=== PATIENT | female | born 2000 | race Caucasian/White ===

== ENCOUNTER 2024-10-03 14:28 | Inpatient (IN) ==
[2024-10-03] MEDS ORDERED: LIDOCAINE 1% LOCAL 20 ML VIAL INFIL PRN (14:44)
[2024-10-03] MEDS ORDERED: OXYTOCIN 30 UNITS/NSS 30 UNITS/500 ML BAG IV PRN (14:44)
[2024-10-03 15:10] LABS: Hematocrit (blood only) 34.6 % (37.0-47.0); Mean Corpuscular Hemoglobin 28.8 pg (25.0-34.0); Mean Corpuscular Hgb Conc 34.7 g/dL (32.0-36.0); Mean Corpuscular Volume 83.2 fL (80.0-100.0); Mean Platelet Volume 10.7 fL (9.4-12.4); Platelet Count 261 K/uL (130-400); RDW Coefficient of Variation 12.6 % (11.5-14.5); RDW Standard Deviation 37.8 fL (36.4-46.3); Red Blood Count 4.16 M/uL (4.20-5.40); White Blood Count 16.23 K/ul (4.8-10.8)
[2024-10-03] MEDS: LACTATED RINGER'S 1,000 ML IV PRN (15:20)
--- NOTE | 2024-10-03 16:22 | History & Physical Report ---
Date of Service October 03, 2024 Assessment & Plan (1) Supervision of normal first : Plan: 24 yo G1 at 40 5/7 wga presents in labor VSS Fetus at 1 Labor - offered arom as does not plan epidural, pt agreeable. May need otstart pit as ctx have spaced but will see GBS neg Admission and Anticipated Discharge Date Admission Date: October 03, 2024 History of Present Illness Chief Complaint: ctx Primary Care Provider: Garth Reyes 24 yo G1 at 40 5/7 wga presents in labor. Was seen in office and 6-7cm, checked by admitting provider on L&D and 10cm w/ bulging bag. Declines epidural PNI: vaping hx pyloric stenosis repair Allergies Allergy/AdvReac Type Severity Reaction Status Date / Time No Known Allergies Allergy Verified 10/03/24 13:45 Home Medications Medication Instructions Recorded Confirmed Type [id number] PO 03/28/24 10/03/24 History [] Patient History Medical History Pyloric stenosis Left sided abdominal pain Surgical History Status post surgery pyloric stenosis S/P tonsillectomy and adenoidectomy Family History Grandmother (Maternal) Lung cancer Other Family history not known due to adoption Social History (Updated 10/03/24 @ 14:45 by Keyana Hurley RN) Smoking Status: Current every day smoker Tobacco Type: E-cigarettes / Vaping Age Started Using Tobacco: 15; Cigarettes Per Day: 3-4 sticks of cigarettes and vapes once a day.; Second Hand Exposure: No; Do You Dip or Chew Tobacco: No; Tobacco Cessation Education Requested by Patient: No Hx Alcohol Use: No Hx Substance Use: Yes Prescribed Medications: Marijuana Prescribed Medications Comment: has marijuana card - anxiety Last Used Substance: Days (ago) Preferred Language: Estonian Communication Ability: Effective Tubular Splitting Machine Tender Required: No Beliefs That Will Affect Care: None marital status: Single marital status details: jada Boxconnor (23) [phone] Current Living Situation: Parent Current Living Situation Comment: lives with parents and cat current occupational status: unemployed current occupation: [employer] Other Information That Helps Us Care for You: No Feels Safe at Home: Yes Safety Concerns: Feels Safe At This Time Assistive Devices: Glasses Physical Exam Genitourinary: SVE 9.5/90/0, arom clear 130/mod/+accel/-decel Irreg ctx Results & Data Vital Signs (Past 12 Hours) Vital Signs Temp Pulse Resp BP 10/03/24 16:00 18 10/03/24 16:00 18 10/03/24 15:28 18 10/03/24 15:28 18 10/03/24 15:00 18 10/03/24 15:00 18 10/03/24 14:50 18 10/03/24 14:50 18 10/03/24 14:46 97.7 F 18 10/03/24 14:39 97.9 F 107 H 18 135/84 Laboratory Results OB Labs: Blood Type B Positive 04/04/24 Antibody Screen NEGATIVE 04/04/24 Hgb 12.4 g/dl (12.0-16.0) 08/23/24 Hct 35.3 % (37.0-47.0) L 08/23/24 MCV 84.4 fL (80.0-100.0) 08/23/24 Plt Count 262 K/uL (130-400) 08/23/24 Rubella IgG Antibody Immune (Immune) 04/04/24 Treponema pallidum Ab Negative (Negative) 08/17/24 Hep Bs Antigen Negative (Negative) 04/04/24 Hepatitis C Antibody Negative (Negative) 04/04/24 HIV 1&2 Ab/P24 Ag 4thGn Negative (Negative) 04/04/24 Glucose 1 Hr 50 gm 146 mg/dl (70-130) H 04/26/24 Maternal Serum AFP 40.4 ng/mL 04/26/24 OB Optional Labs: Chlamydia trachomatis RNA Not Detected (NotDetected) 04/04/24 Neisseria gonorrhoeae RNA Not Detected (NotDetected) 04/04/24 Alpha Fetoprotein Triple Screen SEE NOTE 04/26/24 GBS neg Diagnostic Findings ant plac Coding Level of Care Code None Diagnoses Supervision of normal first Z34.00
--- NOTE | 2024-10-03 19:39 | Labor Progress Brief Note ---
Date of Service October 03, 2024 Subjective feeling more ctx Assessment & Plan (1) Supervision of normal first : Plan: 24 yo G1 at 40 5/7 wga presents in labor VSS Fetus cat 1 Labor - progress noted w/ station, rim of cervix still noted. ctx did cloth picker after arom but think more pit needed to help with coming down in pelvis and pt agreeable. Declines epidural before pit GBS neg Admission and Anticipated Discharge Date Admission Date: October 03, 2024 Physical Exam Genitourinary: Manual OB Exam: + cervical dilation, + cervical effacement 90% and + station -1 OB Exam Monitor Tracing: + external FHT monitor used, + external uterine monitor used (q5) and + category I (120/mod/+accel/early decel) Results & Data Vital Signs (Past 12 Hours) Vital Signs Temp Pulse Resp BP 10/03/24 19:05 82 139/95 10/03/24 19:00 18 10/03/24 19:00 18 10/03/24 18:35 18 10/03/24 18:35 98.1 F 18 10/03/24 18:30 18 10/03/24 18:30 18 10/03/24 18:00 18 10/03/24 18:00 18 10/03/24 17:30 18 10/03/24 17:30 18 10/03/24 17:23 83 149/93 H 10/03/24 17:08 92 H 142/89 H 10/03/24 17:00 18 10/03/24 17:00 18 10/03/24 16:55 98 H 136/89 10/03/24 16:38 18 10/03/24 16:38 98.1 F 18 10/03/24 16:36 95 H 154/84 H 10/03/24 16:30 18 10/03/24 16:30 18 10/03/24 16:00 18 10/03/24 16:00 18 10/03/24 15:28 18 10/03/24 15:28 18 10/03/24 15:00 18 10/03/24 15:00 18 10/03/24 14:50 18 10/03/24 14:50 18 10/03/24 14:46 97.7 F 18 10/03/24 14:39 97.9 F 107 H 18 135/84 Coding Level of Care Code None Diagnoses Supervision of normal first Z34.00
[2024-10-03] MEDS: OXYTOCIN 30 UNITS/NSS 30 UNITS/500 ML BAG IV PRN (19:44)
[2024-10-03 20:34] LABS: Albumin Level 3.1 gm/dl (3.4-5.0); BUN Creatinine Ratio 9.3 (10-20); Bilirubin,Total 0.4 mg/dl (0.2-1.0); Calcium 8.5 mg/dl (8.6-10.3); Creatinine Clr Calc Pharmacy 189.1 ml/min; Potassium 3.6 mmol/L (3.5-5.1); Total Protein 6.1 gm/dl (6.0-8.3)
[2024-10-03] MEDS ORDERED: fentaNYL citrate PF 100 MCG/2 ML VIAL EPI PRN (21:19)
[2024-10-03] MEDS ORDERED: diphenhydrAMINE 50 MG/ML VIAL IV PRN (21:19)
[2024-10-03] MEDS ORDERED: NALOXONE HCL 1 MG in SODIUM CHLORIDE 0.9% 1,000 ML IV PRN (21:19)
[2024-10-03] MEDS ORDERED: fentANYL 2 MCG/ML BUPIVacaine 0.125%-NSS 100ML BAG EPI PRN (21:19)
[2024-10-03] MEDS ORDERED: ROPIVACAINE 0.5% PF 5 MG/ML 20 ML VIAL EPI PRN (21:19)
[2024-10-03] MEDS ORDERED: ePHEDrine sulfate 50 MG/ML AMP IV PRN (21:19)
[2024-10-03] MEDS ORDERED: NALOXONE HCL 0.4 MG/1 ML VIAL/CARP IV PRN (21:19)
[2024-10-03] MEDS ORDERED: SODIUM CHLORIDE 0.9% PF INJ 10 ML VIAL EPI PRN (21:19)
[2024-10-03] MEDS ORDERED: NALBUPHINE HCL INJ 10 MG/ML AMP IV PRN (21:19)
[2024-10-03] MEDS ORDERED: LIDOCAINE 2% MPF LOCAL 5 ML VIAL EPI PRN (21:19)
[2024-10-03] MEDS ORDERED: BUPIVACAINE 0.25% PF 30 ML VIAL EPI PRN (21:19)
[2024-10-03] MEDS: BUPIVACAINE 0.25% PF 30 ML VIAL ONE (21:34)
[2024-10-03] MEDS: fentaNYL citrate PF 100 MCG/2 ML VIAL ONE (21:34)
[2024-10-03] MEDS: LIDOCAINE 2%/EPINEPHRINE 1:200,000 20 ML PF ONE (21:34)
[2024-10-03] MEDS: fentANYL 2 MCG/ML BUPIVacaine 0.125%-NSS 100ML BAG ONE (21:36)
--- NOTE | 2024-10-03 21:38 | Anesthesiology Consultation ---
Date of Service October 03, 2024 Assessment & Plan Chart Review Chart Review: Patient NOT seen in Pre Admission Testing and Acceptable Risk for Labor Epidural Consults Requested none ASA ASA2 Proposed Anesthesia Anesthesia Type: Labor Epidural Risk / Benefits Reviewed With: PT / POA / Parent / Guardian, Accepts Plan and Informed Consent Obtained History Height/Weight Height: 5 ft 4 in Weight: 104.326 kg Allergies Allergy/AdvReac Type Severity Reaction Status Date / Time No Known Allergies Allergy Verified 10/03/24 13:45 Medications Home Medications Medication Instructions Recorded Confirmed Last Taken [id number] PO 03/28/24 10/03/24 10/02/24 [] Active Medications Generic Name Dose Route Start Last Admin Trade Name Freq PRN Reason Stop Dose Admin Lactated Ringer's 1,000 mls @ 125 mls/hr 10/03/24 14:44 10/03/24 19:42 Lr IV 10/04/24 14:43 125 mls/hr .Q8H PRN Infusion L&D Protocol Protocol Oxytocin 30 units in 500 mls @ 4 mls/hr 10/03/24 19:37 10/03/24 20:15 Pitocin 30 Units/Nss IV 10/05/24 19:36 0.24 units/hr .Q24H PRN 4 mls/hr Labor Induction/Augmentation Titration Protocol 0.24 UNITS/HR NPO Date Last Intake of Fluids: 10/03/24 Time Last Intake of Fluids: 21:00 Date Last Intake of Solids: 10/03/24 Time Last Intake of Solids: 11:00 Past Medical History Medical History Pyloric stenosis Left sided abdominal pain Exercise / Class Metabolic Activity 1 > 8 Run/Swim/Ski/Tennis Past Family History Family History Grandmother (Maternal) Lung cancer Other Family history not known due to adoption Past Surgical History Surgical History Status post surgery pyloric stenosis S/P tonsillectomy and adenoidectomy Past Anesthesia History No Hx of Anesthesia Complications and No Family Hx of Anesthesia Complications Social History Smoking Status: Current every day smoker Smoking cigarettes per day: 3-4 sticks of cigarettes and vapes once a day. Do You Dip or Chew Tobacco: No Hx Alcohol Use: No Hx Substance Use: Yes substance use type: marijuana Last Used Substance: Days (ago) Review of Systems ROS Unobtainable: All systems reviewed & are unremarkable except as noted in HPI & below Physical Exam Vital Signs Last Vital Signs Temp 36.7 C 10/03/24 18:35 Pulse 88 10/03/24 21:37 Resp 18 10/03/24 19:01 BP 122/62 10/03/24 21:37 Pulse Ox 96 10/03/24 21:34 Testing Laboratory Results 10/03/24 14:50 10/03/24 20:05
[2024-10-03] MEDS: fentaNYL citrate PF 100 MCG/2 ML VIAL EPI STA (22:41)
[2024-10-03] MEDS: BUPIVACAINE 0.25% PF 30 ML VIAL EPI STA (22:41)
[2024-10-03] MEDS: LIDOCAINE 2%/EPINEPHRINE 1:200,000 20 ML PF EPI STA (22:41)
[2024-10-03] MEDS: SODIUM CHLORIDE 0.9% PF INJ 10 ML VIAL EPI STA (22:41)
[2024-10-03] MEDS: ePHEDrine sulfate 50 MG/ML AMP ONE (22:41)
[2024-10-03] MEDS: SODIUM CHLORIDE 0.9% PF INJ 10 ML VIAL ONE (22:41)
--- NOTE | 2024-10-03 23:42 | Labor Progress Brief Note ---
Date of Service October 03, 2024 Subjective Accepted epidural and now comfortable. Nursing noted that while I was in delivery, decels occurred shortly after epidural that were audible but not tracing and so pitocin turned off Assessment & Plan (1) Supervision of normal first : Plan: 24 yo G1 at 40 5/7 wga presents in labor VSS Fetus cat 2 so fse/iupc placed for more accurate monitoring. RN noted that the re was decel that occurred while I was actively completing another delivery but I was not made aware. they then noted it did improve with pitocin dc. Currently fetus is cat 2 and will try repositioning SVE is unchanged, unclear if baby just coming down asynclitic and that is why cervix is becoming slightly more swollen in the posterior right and feeling more cervix than earlier? Pit only got to 6 before having to dc due to decel. Now with fse/iupc placed so can monitor more accurately, will allow time to recover and see if can restart pit. If not, will discuss possible cs due to intolerance of labor GBS neg epidural in place Admission and Anticipated Discharge Date Admission Date: October 03, 2024 Physical Exam Genitourinary: Manual OB Exam: + cervical dilation (8-9), + cervical effacement 90% and + station -1 and 0 OB Exam Monitor Tracing: + scalp electrode used, + intra-uterine pressure catheter used and + category II (135/mod/occ accel/+early and variables) Results & Data Vital Signs (Past 12 Hours) Vital Signs Temp Pulse Resp BP Pulse Ox 10/03/24 23:34 85 98 10/03/24 23:33 90 127/64 10/03/24 23:29 92 H 98 10/03/24 23:24 135 H 96 10/03/24 23:19 84 97 10/03/24 23:18 74 125/61 10/03/24 23:14 77 98 10/03/24 23:09 80 96 10/03/24 23:04 90 98 10/03/24 22:59 113 H 98 10/03/24 22:54 88 97 10/03/24 22:49 93 H 98 10/03/24 22:48 94 H 139/83 10/03/24 22:44 101 H 98 10/03/24 22:39 110 H 98 10/03/24 22:34 80 97 10/03/24 22:33 106 H 152/89 H 10/03/24 22:29 102 H 97 10/03/24 22:24 111 H 99 10/03/24 22:19 107 H 100 10/03/24 22:18 107 H 141/90 H 10/03/24 22:14 104 H 99 10/03/24 22:09 84 98 10/03/24 22:04 75 98 10/03/24 22:03 72 133/65 10/03/24 21:59 74 96 10/03/24 21:54 82 98 10/03/24 21:49 89 97 10/03/24 21:44 88 95 10/03/24 21:43 86 16 124/61 10/03/24 21:41 86 127/59 L 10/03/24 21:39 96 10/03/24 21:39 90 10/03/24 21:39 85 141/64 H 10/03/24 21:37 98.2 F 88 18 122/62 10/03/24 21:35 86 126/79 10/03/24 21:34 84 96 10/03/24 21:31 89 146/81 H 10/03/24 21:29 93 H 95 10/03/24 21:24 96 H 93 10/03/24 21:19 100 H 94 10/03/24 21:14 100 H 95 10/03/24 20:51 88 168/96 H 10/03/24 20:43 82 179/101 H 10/03/24 20:42 88 191/115 H 10/03/24 20:41 86 177/111 H 10/03/24 19:51 88 140/77 10/03/24 19:50 85 163/88 H 10/03/24 19:05 82 139/95 10/03/24 19:01 18 10/03/24 19:00 18 10/03/24 19:00 18 10/03/24 18:35 18 10/03/24 18:35 98.1 F 18 10/03/24 18:30 18 10/03/24 18:30 18 10/03/24 18:00 18 10/03/24 18:00 18 10/03/24 17:30 18 10/03/24 17:30 18 10/03/24 17:23 83 149/93 H 10/03/24 17:08 92 H 142/89 H 10/03/24 17:00 18 10/03/24 17:00 18 10/03/24 16:55 98 H 136/89 10/03/24 16:38 18 10/03/24 16:38 98.1 F 18 10/03/24 16:36 95 H 154/84 H 10/03/24 16:30 18 10/03/24 16:30 18 10/03/24 16:00 18 10/03/24 16:00 18 10/03/24 15:28 18 10/03/24 15:28 18 10/03/24 15:00 18 10/03/24 15:00 18 10/03/24 14:50 18 10/03/24 14:50 18 10/03/24 14:46 97.7 F 18 10/03/24 14:39 97.9 F 107 H 18 135/84 Coding Level of Care Code None Diagnoses Supervision of normal first Z34.00
--- NOTE | 2024-10-04 00:53 | Communication Note ---
Date of Service: October 04, 2024 Presented to bedside to discuss poc w/ patient. Moderate variability but still variables w/ spontaneous ctx, sometimes early and occ prolonged variables d espite repositioning. Accels noted with recheck so good scalp stim noted however not able to start pit. Discussed option for amnioinfusion but possible need for CS if no improvement with this vs proceeding with CS. Cervix is less swollen than earlier but still present mainly on R side so ?positioning but unable to start pit w/ variables. Discussed risks and benefits of each. She would like to try amnio first but aware of rec if no improvement
--- NOTE | 2024-10-04 01:51 | Communication Note ---
Date of Service: October 04, 2024 Amnioinfusion bolus completed with minimal to no improvement. Discussed this with patient and inability to augment with pitocin, recommendation for CS given inability to augment and essentially arrest of dilation as has not made progress even without adequate contractions. Discussed risk of starting pitocin with tracing including need for emergent delivery and pt verbalized understanding, desires to proceed. Discussed indications, risks, benefits, alternatives with risks including infection, bleeding, injury to adjacent structures (bowel, bladder, ureters, blood vessels, nerves, baby), possible need for blood transfusion and/or life saving hysterectomy, VTE. Consent reviewed in detail w/ pt and signed after all questions answered to her satisfaction. Will plan for ancef and azithro, anesthesia and peds aware
[2024-10-04] MEDS: CITRIC ACID/SODIUM CITRATE 15 ML UDC PO SCH (01:57)
[2024-10-04] MEDS: ACETAMINOPHEN 500 MG TAB PO ONE (01:57)
[2024-10-04] MEDS ORDERED: AZITHROMYCIN 500 MG/255 ML BAG IV ONE (02:00)
[2024-10-04] MEDS: ceFAZolin 3000MG 3,000 MG/72.5 ML BAG IV ONE (02:06)
[2024-10-04] MEDS ORDERED: PHENYLEPHRINE 100MCG/ML 5ML SYR ONE (02:07)
[2024-10-04] MEDS ORDERED: LIDOCAINE 2%/EPINEPHRINE 1:200,000 20 ML PF ONE (02:07)
[2024-10-04] MEDS ORDERED: ONDANSETRON INJ 2 MG/ML 2 ML VIAL ONE (02:07)
[2024-10-04] MEDS ORDERED: DEXAMETHASONE SOD INJ 4 MG/ML VIAL ONE (02:07)
[2024-10-04] MEDS ORDERED: MoRPHine SULFATE PF 1 MG/ML 10 ML AMP/VIAL ONE (02:08)
--- NOTE | 2024-10-04 02:12 | Communication Note ---
Date of Service: October 04, 2024 decision made to proceed with c/s for intolerance and failure to dilate. Will plan to use epidural anesthesia. ASA2E
[2024-10-04] MEDS ORDERED: ePHEDrine sulfate 50 MG/ML AMP IV PRN (03:43)
[2024-10-04] MEDS ORDERED: NALBUPHINE HCL INJ 10 MG/ML AMP IV PRN (03:43)
[2024-10-04] MEDS ORDERED: NALOXONE HCL 0.08 MG in SYRINGE 1.8 ML IV PRN (03:43)
[2024-10-04] MEDS ORDERED: oxyCODONE HCL IR 5 MG TAB (IMMEDIATE RELEASE) PO PRN ×2 (03:43→21:44)
[2024-10-04] MEDS ORDERED: PROMETHAZINE 6.25 MG/50.25 ML BAG IV PRN (03:43)
[2024-10-04] MEDS ORDERED: MoRPHine SULFATE PF 1 MG/ML 10 ML AMP/VIAL EPI ONE (03:43)
[2024-10-04] MEDS ORDERED: METOCLOPRAMIDE HCL 20 MG in SODIUM CHLORIDE 0.9% 50 ML IV PRN (03:43)
[2024-10-04] MEDS ORDERED: NALOXONE HCL 1 MG in SODIUM CHLORIDE 0.9% 1,000 ML IV PRN (03:43)
[2024-10-04] MEDS ORDERED: NALOXONE HCL 0.4 MG/1 ML VIAL/CARP IV PRN (03:43)
[2024-10-04] MEDS ORDERED: diphenhydrAMINE 50 MG/ML VIAL IV PRN ×2 (03:43→21:44)
[2024-10-04] MEDS ORDERED: HYDROmorphone INJ 0.5 MG/0.5 ML SYR IV PRN ×2 (03:43→21:44)
[2024-10-04] MEDS ORDERED: MEPERIDINE HCL 25 MG/ML CARP/VIAL IV PRN (03:43)
[2024-10-04] MEDS ORDERED: diphenhydrAMINE Capsule 25 MG CAP PO PRN ×2 (03:43→03:55)
--- NOTE | 2024-10-04 03:44 | Operative Report ---
Post Operative Report Pre & Post Diagnosis Operation Date: 10/04/24 01:40 Pre-Op Diagnosis: 1. Intrauterine at 40 weeks 2. Arrest of dilation 3. intolerance to labor Post-Op Diagnosis: Same as preop I identified the patient and participated in the time-out.: Yes Procedure Operation Date: 10/04/24 01:40 Actual Procedures p Primary Low Transverse Section in - Lynnette Zuniga MD Surgeon Lynnette Zuniga MD Manager Environmental BENITEZ Pimentel Quantitative Blood Loss (QBL) 411 Findings Consistent with Post-Op Diagnosis Viable male with APGARs 8 and 9. Fluids UOP 50cc clear urine Specimens Cord blood Drains Gannon draining clear urine Anesthesia Type Labor Epidural Complications none Disposition Accompanied Patient To Recovery: Yes Disposition: L&D Indications 24 yo G1 at 40 6/7 wga presented 1 day ago in labor at approximately 6-7cm. She underwent arom with slight change and was started on pitocin. She received an epidural for pain control. Due to decel, pitocin was discontinued and was unable to be restarted due to intolerance of contractions. She was counseled regarding options and desired to proceed Description of Procedure The patient was taken to the operating room after consents were ensured. The patient was properly identified. Epidural anesthesia was bolused without difficulty. The patient was placed in a dorsal supine position with left lateral tilt, then prepped and draped in normal sterile fashion. Surgical time out was performed. Antibiotics were given for prophylaxis. Anesthesia was tested to ensure adequate surgical levels. Pfannenstiel skin incision was performed and carried down to the underlying fascia with a knife. The fascia was then nicked in the midline and extended laterally with pickups and Felton scissors. Superior portion of the fascia was grasped with Kochers x2 and elevated off the underlying rectus muscles using blunt dissection. Inferior portion of the fascia was then grasped with Marilin clamps x2 and also elevated off the underlying muscles with blunt dissection. Midline was identified. The peritoneum was then entered and extended to provide adequate room for delivery of baby. A hand was inserted into the abdomen, uterus was noted to be clear of adhesions. Bladder blade was inserted, bladder flap was created in the usual fashion. A low transverse uterine incision was made in the uterus and extended bluntly in a superior to inferior fashion. Clear fluid was noted at time of entry into uterus. head was grasped and elevated through the hysterotomy in an atraumatic fashion. The baby delivered in KERI position, no nuchal cord. Remainder of the body delivered without incident. Nose and mouth were bulb suctioned on the surgical field. The cord was double clamped and cut, baby was handed off to awaiting pediatrics staff. Cord segment and blood were obtained. Placenta was then manually removed from the uterus. Several passes were made inside the uterus to remove the remaining membranes. Attention was then turned to the hysterotomy, which was then closed with a running locked suture of 0 Vicryl on a CTX needle with uterus in situ. An imbricating layer was then performed using 0-Monocryl. There was noted to be good hemostasis. The hysterotomy was again inspected and noted to be hemostatic. The right and left pericolic gutters were cleaned of all clot and debris. The hysterotomy was again noted to be hemostatic. Space of Retzius was noted to be hemostatic. The fascia was then closed with a running suture of 0 Vicryl on a CT1 needle. Subcutaneous tissue was copiously irrigated and noted to be hem ostatic. Subcutaneous tissue was re-approximated using 2-0 plain gut. The skin was then closed with a running suture of 3-0 Monocryl in a subcuticular fashion. At termination of the procedure, fundal pressure was applied and a moderate amount of lochia was expressed. Pressure dressing was applied to the patient. She tolerated the procedure well. All sponge, needle, instrument counts were correct x 2. I attest to the content of the Intraoperative Record and any orders documented therein. Any exceptions are noted below. OB Procedure Charges 10481
[2024-10-04] MEDS ORDERED: DC INTRASPINAL MORPHINE SCH (03:45)
[2024-10-04] MEDS ORDERED: NO NARCOTICS OR SEDATIVES SCH (03:45)
--- NOTE | 2024-10-04 03:45 | Anesthesia Procedure Note ---
Date of Service October 04, 2024 Anesthesia Post Epidural Note Vital Signs Vital Signs: Temp Pulse Resp BP Pulse Ox 36.8 C 93 H 16 148/83 H 97 10/03/24 23:43 10/04/24 03:43 10/03/24 23:43 10/04/24 03:42 10/04/24 03:43 Pain Intensity Lower Abdomen: Pain Intensity: 0 Notes Mental Status: alert / awake / arousable and participated in evaluation Nausea / Vomiting: adequately controlled Pain: adequately controlled Airway Patency, RR, SpO2: stable & adequate BP & HR: stable & adequate Hydration State: stable & adequate Neuraxial Anesthesia: was administered and sensory block is resolving Anesthetic Complications: no major complications apparent Epidural: Removed without complications and With tip intact
--- NOTE | 2024-10-04 03:46 | Anesthesiology Progress Note ---
Date of Service October 04, 2024 Anesthesia Post Procedure Vital Signs Vital Signs: Temp Pulse Resp BP Pulse Ox 10/04/24 03:43 93 H 97 10/04/24 03:42 98 H 148/83 H 10/04/24 02:14 107 H 97 10/04/24 02:09 105 H 98 10/04/24 02:04 105 H 97 10/04/24 02:03 104 H 137/88 10/04/24 01:59 114 H 95 10/04/24 01:54 102 H 97 10/04/24 01:49 105 H 98 10/04/24 01:48 108 H 126/81 10/04/24 01:44 101 H 97 10/04/24 01:39 113 H 97 10/04/24 01:34 103 H 97 10/04/24 01:33 101 H 132/84 10/04/24 01:29 101 H 96 10/04/24 01:24 99 H 96 10/04/24 01:19 123 H 93 10/04/24 01:18 106 H 131/82 10/04/24 01:17 94 H 85 L 10/04/24 01:14 110 H 97 10/04/24 01:09 103 H 96 10/04/24 01:04 115 H 97 10/04/24 01:03 109 H 130/81 10/04/24 00:59 116 H 97 10/04/24 00:54 106 H 96 10/04/24 00:49 114 H 132/84 97 10/04/24 00:44 109 H 97 10/04/24 00:39 108 H 96 10/04/24 00:34 91 H 96 10/04/24 00:33 101 H 132/77 10/04/24 00:29 100 H 97 10/04/24 00:24 113 H 99 10/04/24 00:19 98 H 119/61 98 10/04/24 00:14 93 H 98 10/04/24 00:09 82 97 10/04/24 00:04 93 H 98 10/04/24 00:03 87 122/61 10/03/24 23:59 80 96 10/03/24 23:54 93 H 97 10/03/24 23:49 85 126/57 L 98 10/03/24 23:44 104 H 100 10/03/24 23:43 16 10/03/24 23:43 36.8 C 16 10/03/24 23:39 103 H 100 10/03/24 23:34 85 98 10/03/24 23:33 90 127/64 10/03/24 23:29 92 H 98 10/03/24 23:24 135 H 96 10/03/24 23:19 84 97 10/03/24 23:18 74 125/61 10/03/24 23:14 77 98 10/03/24 23:09 80 96 10/03/24 23:04 90 98 10/03/24 22:59 113 H 98 10/03/24 22:54 88 97 10/03/24 22:49 93 H 98 10/03/24 22:48 94 H 139/83 10/03/24 22:44 101 H 98 10/03/24 22:39 110 H 98 10/03/24 22:34 80 97 10/03/24 22:33 106 H 152/89 H 10/03/24 22:29 102 H 97 10/03/24 22:24 111 H 99 10/03/24 22:19 107 H 100 10/03/24 22:18 107 H 141/90 H 10/03/24 22:14 104 H 99 10/03/24 22:09 84 98 10/03/24 22:04 75 98 10/03/24 22:03 72 133/65 10/03/24 21:59 74 96 10/03/24 21:54 82 98 10/03/24 21:49 89 97 10/03/24 21:44 88 95 10/03/24 21:43 86 16 124/61 10/03/24 21:41 86 127/59 L 10/03/24 21:39 96 10/03/24 21:39 90 10/03/24 21:39 85 141/64 H 10/03/24 21:37 36.8 C 88 18 122/62 10/03/24 21:35 86 126/79 10/03/24 21:34 84 96 10/03/24 21:31 89 146/81 H 10/03/24 21:29 93 H 95 10/03/24 21:24 96 H 93 10/03/24 21:19 100 H 94 10/03/24 21:14 100 H 95 10/03/24 20:51 88 168/96 H 10/03/24 20:43 82 179/101 H 10/03/24 20:42 88 191/115 H 10/03/24 20:41 86 177/111 H 10/03/24 19:51 88 140/77 10/03/24 19:50 85 163/88 H 10/03/24 19:05 82 139/95 10/03/24 19:01 18 10/03/24 19:00 18 10/03/24 19:00 18 10/03/24 18:35 18 10/03/24 18:35 36.7 C 18 10/03/24 18:30 18 10/03/24 18:30 18 10/03/24 18:00 18 10/03/24 18:00 18 10/03/24 17:30 18 10/03/24 17:30 18 10/03/24 17:23 83 149/93 H 10/03/24 17:08 92 H 142/89 H 10/03/24 17:00 18 10/03/24 17:00 18 10/03/24 16:55 98 H 136/89 10/03/24 16:38 18 10/03/24 16:38 36.7 C 18 10/03/24 16:36 95 H 154/84 H 10/03/24 16:30 18 10/03/24 16:30 18 10/03/24 16:00 18 10/03/24 16:00 18 10/03/24 15:28 18 10/03/24 15:28 18 10/03/24 15:00 18 10/03/24 15:00 18 10/03/24 14:50 18 10/03/24 14:50 18 10/03/24 14:46 36.5 C 18 10/03/24 14:39 36.6 C 107 H 18 135/84 Pain Intensity Lower Abdomen: Pain Intensity: 0 Transfer of Care Handoff Completed per policy Notes Mental Status: alert / awake / arousable Patient Amnestic to Procedure: Yes Nausea / Vomiting: adequately controlled Pain: adequately controlled Airway Patency, RR, SpO2: stable & adequate BP & HR: stable & adequate Hydration State: stable & adequate Neuraxial Anesthesia: was administered and sensory block is resolving Anesthetic Complications: no major complications apparent and Pt Satisfied with anesthetic care
[2024-10-04] MEDS ORDERED: HYDROCORTISONE ACETATE 25 MG SUPP PR PRN (03:55)
[2024-10-04] MEDS ORDERED: CALCIUM CARBONATE 500 MG CHEWABLE TAB PO PRN (03:55)
[2024-10-04] MEDS ORDERED: MAGNESIUM HYDROXIDE SUSP 30 ML UDC PO PRN (03:55)
[2024-10-04] MEDS ORDERED: SENNA 8.6 MG TAB PO PRN (03:55)
[2024-10-04] MEDS ORDERED: BENZOCAINE 20% SPRY 85 APPLN/85 GM CAN EXT PRN (03:55)
[2024-10-04] MEDS: OXYTOCIN 20 UNITS/LR 1,002 ML IV SCH (04:07)
[2024-10-04] MEDS: KETOROLAC 30 MG/ML VIAL IV SCH (04:09)
[2024-10-04] MEDS: DIPHTHER/TETAN/PERTUS Vaccine (Tdap, Adol/Adult) 0.5mL IM ONE (04:12)
[2024-10-04] MEDS: ONDANSETRON INJ 2 MG/ML 2 ML VIAL IV PRN (08:32)
[2024-10-04] MEDS: DOCUSATE SODIUM 100 MG CAP PO SCH (08:57)
[2024-10-04] MEDS: SIMETHICONE 80 MG CHEW PO SCH (08:57)
[2024-10-04] MEDS: PRENATAL VITAMIN 1 TAB PO SCH (08:57)
[2024-10-04] MEDS: FERROUS SULFATE 325 MG TAB PO SCH (08:57)
[2024-10-04] MEDS: ACETAMINOPHEN 325 MG TAB PO SCH (09:26)
[2024-10-04] MEDS ORDERED: LACTATED RINGER'S 1,000 ML IV SCH (12:00)
[2024-10-04] MEDS ORDERED: ONDANSETRON INJ 2 MG/ML 2 ML VIAL IV PRN (21:44)
[2024-10-04] MEDS ORDERED: PROMETHAZINE 12.5 MG/50.5 ML BAG IV PRN (21:44)
[2024-10-05] MEDS ORDERED: KETOROLAC 30 MG/ML VIAL IV PRN (03:38)
[2024-10-05 06:18] LABS: Basophils # (auto) 0.01 K/uL (0.00-0.20); Basophils % (auto) 0.1 %; Eosinophils # (auto) 0.16 K/uL (0.00-0.50); Eosinophils % (auto) 1.2 %; Hematocrit (blood only) 30.2 % (37.0-47.0); Hemoglobin 10.4 g/dl (12.0-16.0); Immature Granulocytes # (auto) 0.09 K/uL (0.01-0.20); Immature Granulocytes % (auto) 0.7 %; Lymphocytes # (auto) 2.41 K/uL (1.20-3.40); Lymphocytes % (auto) 17.5 %; Mean Corpuscular Hgb Conc 34.4 g/dL (32.0-36.0); Mean Platelet Volume 10.9 fL (9.4-12.4); Monocytes # (auto) 1.06 K/uL (0.11-0.59); Monocytes % (auto) 7.7 %; Neutrophils # (auto) 10.04 K/uL (1.40-6.50); Neutrophils % (auto) 72.8 %; Platelet Count 219 K/uL (130-400); RDW Standard Deviation 41.1 fL (36.4-46.3); Red Blood Count 3.47 M/uL (4.20-5.40); White Blood Count 13.77 K/ul (4.8-10.8)
[2024-10-05] MEDS: IBUPROFEN 600 MG TAB PO SCH (06:29)
--- NOTE | 2024-10-05 07:38 | Obstetrical Progress Note ---
Date of Service October 05, 2024 Assessment & Plan (1) Encounter for care and examination after delivery: Day 1 status post primary . Patient doing well. Routine care Subjective Ambulation: ambulating normally Voiding: no voiding problems Passing Gas:: Yes Diet Tolerance:: regular diet Lochia:: Moderate Physical Exam Constitutional WD/WN, vitals as above Respiratory normal respiratory effort; no respiratory distress and no labored breathing Cardiovascular Extremities: no calf tenderness Gastrointestinal (Abdomen) Inspection/Auscultation: abdomen normal to inspection; abdomen not distended Percussion/Palpation: abdomen soft; abdomen nontender, no guarding and abdomen not rigid Genitourinary OB Exam Abdomen: + fundal height Fundus: + firm and + relation to umbilicus (Below); not tender or not boggy Results & Data Vital Signs (Past 12 Hours) Vital Signs Temp Pulse Resp BP Pulse Ox O2 Del Method 10/04/24 23:54 36.7 C 79 18 128/77 Room Air 10/04/24 21:00 20 96 10/04/24 20:56 36.7 C 74 20 128/77 98 Room Air 10/04/24 20:00 20 98
[2024-10-05] MEDS: bisacodyL 5 MG TABEC PO SCH (19:35)
[2024-10-05 20:03] VITALS: RESP 18
[2024-10-05 23:07] VITALS: O2SAT 98
[2024-10-06] MEDS ORDERED: bisacodyL 10 MG SUPP PR PRN (03:38)
[2024-10-06] MEDS: IBUPROFEN 600 MG TAB PO PRN (05:50)
[2024-10-06 06:17] LABS: Hematocrit (blood only) 31.9 % (37.0-47.0); Hemoglobin 10.6 g/dl (12.0-16.0)
--- NOTE | 2024-10-06 07:22 | Obstetrical Progress Note ---
Date of Service October 06, 2024 Assessment & Plan (1) Encounter for care and examination after delivery: POD#2 CSec, doing well and ready for discharge home. Subjective Ambulation: ambulating normally Voiding: no voiding problems Passing Gas:: Yes Diet Tolerance:: regular diet Lochia:: Small Feeding Type:: breast feeding Physical Exam Constitutional WD/WN, vitals as above Eyes PERRL, conjunctivae normal, anicteric sclerae Neck normal visual inspection Respiratory normal respiratory effort and able to speak in complete sentences; no respiratory distress and no labored breathing Cardiovascular Rate/Rhythm: regular rate and regular rhythm Extremities: no edema Chest (Breasts) Chest: normal inspection of chest Gastrointestinal (Abdomen) Inspection/Auscultation: abdomen normal to inspection Soft, postgravid Incision c/d/i, has gauze under pannus d/t sweatiness per pt, no dressing Psychiatric A+Ox3, euthymic affect Genitourinary OB Exam Abdomen: + fundal height Fundus: + firm and + relation to umbilicus (fundus just below umbilicus); not tender Results & Data Vital Signs (Past 12 Hours) Vital Signs Temp Pulse Resp BP Pulse Ox O2 Del Method 10/05/24 23:01 98.1 F 79 18 136/88 98 Room Air 10/05/24 19:35 97.9 F 92 H 18 129/82 97 Room Air
[2024-10-06 09:12] VITALS: PULSE 81; TEMP 97.7
[2024-10-06 09:29] VITALS: BP 155/98
[2024-10-06] MEDS ORDERED: ACETAMINOPHEN 325 MG TAB PO PRN (09:38)
== END 2024-10-06 12:00 | disposition home or self-care (01) | DRG 788 ==
LOC: 4S1 14:28 → 4E2 10-04 06:06